=== PATIENT | male | born 1990 | race American Indian/Alaskan Native ===

== ENCOUNTER 2018-01-23 01:05 | Emergency (ER) | payer SELFPAY ==
[2018-01-23 02:07] VITALS: BP 128/81
--- NOTE | 2018-01-23 05:58 | Emergency Department Report ---
Minor Respiratory - HPI Chief Complaint: Sore Throat Stated Complaint: SORE THROAT Time Seen by Provider: 01/23/18 04:48 Duration: 1 week Pain Location: Throat Severity: moderate Minor Respiratory: Yes Rhinorrhea, Yes Sore Throat, Yes Able to Tolerate Fluids , Yes Cough, No Ear Pain, No Sick Contacts, No Hemoptysis, No Chest Pain, No Shortness of Breath, No Fever Other History: This is a 28 y.o. male that presents with sore throat and non- productive cough for 1 week. He has been taking theraflu with minimal improvement of symptoms. States he was unable to swallow for 2 days but it resolved after taking theraflu. States pain is now only with swallowing and coughing. He originally had a fever, which resolved with NSAID's. He went to work yesterday and they sent him home until he could be cleared to return to work. Denies drooling, difficulty swallowing, SOB, chest pain, n/v, and fever. ED Review of Systems ROS: Stated complaint: SORE THROAT Other details as noted in HPI Constitutional: denies: chills, fever ENT: throat pain, congestion. denies: ear pain, dental pain, hearing loss, epistaxis Respiratory: cough. denies: shortness of breath, wheezing Cardiovascular: denies: chest pain, palpitations, syncope Gastrointestinal: denies: abdominal pain, nausea, vomiting, diarrhea Musculoskeletal: myalgia. denies: back pain, joint swelling, arthralgia Neurological: denies: headache, weakness, numbness, paresthesias Psychiatric: denies: anxiety, depression ED Past Medical Hx - Past Medical History Previous Medical History?: No - Surgical History Past Surgical History?: No - Social History Smoking Status: Never Smoker Substance Use Type: None - Medications Home Medications: Home Medications Medication Instructions Recorded Confirmed Last Taken Type Benzonatate [Tessalon Perle] 100 mg PO TID PRN #30 capsule 01/23/18 Unknown Rx Fluticasone [Flonase] 1 spray NS QDAY #1 bottle 01/23/18 Unknown Rx Loratadine [Claritin] 10 mg PO DAILY #30 tablet 01/23/18 Unknown Rx Minor Respiratory Exam - Exam General: Vital signs noted. No distress. Alert and acting appropriately. HEENT: Yes Pharyngeal Erythema, Yes Moist Mucous Membranes, Yes Rhinorrhea ( turbinates mildly congested with clear discharge), No Pharyngeal Exudates, No Conjuctival Injection, No Frontal Tenderness, No Maxillary Tenderness Ear: Neither TM Bulge, Neither TM Erythema, Neither EAC Pain, Neither EAC Discharge Neck: Yes Supple, No Adenopathy Lungs: Yes Good Air Exchange, No Wheezes, No Ronchi, No Stridor, No Cough, No Labored Respirations, No Retractions, No Use of Accessory Muscles, No Other Abnormal Lung Sounds Heart: Yes Regular, No Murmur Abdomen: Yes Normal Bowel Sounds, No Tenderness, No Peritoneal Signs Skin: No Rash, No Edema Neurologic: Alert and oriented, no deficits. Musculoskeletal: Unremarkable. ED Course Vital Signs 01/23/18 02:05 Temperature 98.4 F Pulse Rate 77 Respiratory 18 Rate Blood Pressure 128/81 O2 Sat by Pulse 99 Oximetry ED Medical Decision Making - Medical Decision Making This is a 28 y.o. male that presents with sore throat and cough for 1 week. Patient examined by me and stable. No distress noted. Rapid strep obtained and negative. Vitals stable. Physical findings susceptible for allergic rhinitis and nasopharyngitis. Take tylenol or ibuprofen for pain. Start loratidine, benzonate, and flonase. Discussed plan with patient and he agreed with plan to treat outpatient. Discharged home. Return to work tomorrow. Follow up with PCP in 48-72 hours. Critical care attestation.: If time is entered above; I have spent that time in minutes in the direct care of this critically ill patient, excluding procedure time. ED Disposition Clinical Impression: Nasopharyngitis acute Allergic rhinitis Qualifiers: Allergic rhinitis trigger: unspecified Allergic rhinitis seasonality: seasonal Qualified Code(s): J30.2 - Other seasonal allergic rhinitis Disposition: - TO HOME OR SELFCARE Is pt being admited?: No Does the pt Need Aspirin: No Condition: Stable Instructions: Upper Respiratory Infection (ED), Allergic Rhinitis (ED) Additional Instructions: Increase fluid intake and rest. Wash hands frequently. Take zyrtec, claritin, or judy daily as need for symptom relief. Symptoms should improve in the next 3-7 days. Avoid triggers such as pollen and smoke. Use nasal saline spray to help control congestion and rinse nasal cavity, to improve breathing. F/U with [facility] [employer] in 24-72 hours. Return to ER if fever, SOB, or difficulty breathing after 48 hours of supportive care. Prescriptions: Benzonatate [Tessalon Perle] 100 mg PO TID PRN #30 capsule PRN Reason: Cough Fluticasone [Flonase] 1 spray NS QDAY #1 bottle Loratadine [Claritin] 10 mg PO DAILY #30 tablet Referrals: [facility] [Outside] - 3-5 Days [facility] [Outside] - 3-5 Days [facility] [Outside] - 3-5 Days Forms: Work/School Release Form(ED) Time of Disposition: 06:03 Print Language: BELARUSIAN
== END 2018-01-23 06:06 | disposition home or self-care (01) ==
LOC: ED 01:05
DX: J00 Acute nasopharyngitis [common cold] (principal); J30.9 Allergic rhinitis, unspecified
CPT/HCPCS: 87116; 87430; 99282